=== PATIENT | male | born 1960 | race Caucasian/White ===

== ENCOUNTER 2022-12-15 06:53 | Day surgery (SDC) | payer BC ==
[2022-12-11 14:05] LABS: ALBUMIN 3.9 G/DL (3.4-5.0); ALBUMIN/GLOBULIN RATIO 1.1 (1.1-1.5); ALKALINE PHOSPHATASE 25 IU/L (46-116); BLOOD UREA NITROGEN 17 MG/DL (7-18); BUN/CREATININE RATIO 16.5 (10.0-20.0); CALCIUM 9.2 MG/DL (8.5-10.1); CHLORIDE 106 MMOL/L (99-107); CREATININE 1.03 MG/DL (0.60-1.10); PRE OP ALT 32 U/L (30-65); PRE OP ANION GAP 9 (8-16); PRE OP AST 30 U/L (10-37); PRE OP BILIRUB, TOTAL 0.4 MG/DL (0.0-1.0); PRE OP GLUCOSE 87 MG/DL (70-104); PRE OP POTASSIUM 4.1 MMOL/L (3.4-5.1); PRE OP SODIUM 141 MMOL/L (135-145); TOTAL CARBON DIOXIDE 25.6 MMOL/L (24-32); TOTAL PROTEIN 7.6 G/DL (6.4-8.2); eGFR 73 ML/MIN
[2022-12-11 15:09] LABS: BASOPHILS # (AUTO) 0.1 X10'3 (0-0.2); BASOPHILS % (AUTO) 0.7 % (0-1); EOSINOPHILS # (AUTO) 0.2 X10'3 (0-0.9); EOSINOPHILS % (AUTO) 1.4 % (0-6); LYMPHOCYTES # (AUTO) 2.6 X10'3 (1.1-4.8); LYMPHOCYTES % (AUTO) 23.9 % (21-51); MEAN CORPUSCULAR HEMOGLOBIN 32.7 PG (27.0-31.0); MEAN CORPUSCULAR HGB CONC 33.4 g/dL (33.0-36.5); MEAN CORPUSCULAR VOLUME 97.9 FL (78-98); MEAN PLATELET VOLUME 10.7 FL (7.4-10.4); MONOCYTES # (AUTO) 0.8 X10'3 (0-0.9); MONOCYTES % (AUTO) 7.7 % (2-12); NEUTROPHILS # (AUTO) 7.3 X10'3 (1.8-7.7); NEUTROPHILS % (AUTO) 66.3 % (42-75); PRE OP HEMATOCRIT 45.1 % (42.0-52.0); PRE OP PLATELET COUNT 208 X10'3 (140-440); RED CELL DISTRIBUTION WIDTH 12.8 % (11.5-14.5)
[~2022-12-15] VITALS: Ht 177.8 cm; Wt 120.2 kg
[2022-12-15] VITALS (20 sets, daily range): BP systolic 103–155; BP diastolic 58–91
[~2022-12-15 06:53] MED LIST: ATEN50TA8 PO; ATOR20TA66 PO; DOCUMENT DATE & TIME OF BETA-BLOCKER PO ONE; LISI20TA28 PO; TRAM50TA2 PO; TRIA1CAP88 PO; acetaminophen 325mg tablet PO ONE; ceFAZolin inj. 3,000 MG in normal saline 100ml IV soln 100 ML IV ONE; celeCOXIB 100mg capsule PO ONE; famotidine 20mg tablet PO ONE; gabapentin 300mg capsule PO ONE; metoclopramide 5 mg/ml inj IV ONE; oxyCODONE SR 10mg (sust. release) tab -2 tabs (20mg) PO ONE; tranexamic acid inj. 1,000 MG in normal saline IV soln 100ML IV ONE; vancomycin 1,500 MG in NS 300ml IV soln IV ONE
[2022-12-15] MEDS ORDERED: HYDROcodone/acetaminophen 10/325mg tab PO PRN (07:15)
[2022-12-15] MEDS ORDERED: potassium cl 20mEq in 1/2 NS 1,000 ML IV SCH (07:15)
[2022-12-15] MEDS ORDERED: HYDROmorphone inj. 0.5 MG/0.5 ML DISP.SYRIN IV PRN (07:15)
[2022-12-15] MEDS ORDERED: acetaminophen 325mg tablet PO PRN (07:15)
[2022-12-15] MEDS ORDERED: bisacodyl 10mg suppository rectal RC PRN (07:15)
[2022-12-15] MEDS ORDERED: ondansetron/PF 4mg/2ml inj IV PRN ×2 (07:15→12:20)
[2022-12-15] MEDS ORDERED: naloxone 0.4 mg/ml inj IV PRN (07:15)
[2022-12-15] MEDS ORDERED: magnesium hydroxide 30ml (MOM) UD suspension PO PRN (07:15)
[2022-12-15] MEDS ORDERED: diphenhydrAMINE 25mg capsule PO PRN ×2 (07:15)
--- NOTE | 2022-12-15 07:50 | NUR ---
STRONG PALPABLE PULSE TO TOP OF RIGHT FOOT MARKED W/ SKIN MARKER. PT STATES THEY Bathed per total joint protocol. pt also read booklet and states understanding regarding their procedure.
[2022-12-15] MEDS ORDERED: ceFAZolin/D5W- 1GM premix 50 ML IV SCH (08:00)
[2022-12-15] MEDS: ringers solution, lacted 1,000 ML IV SCH ×3 (08:05→17:49)
[2022-12-15] MEDS ORDERED: ROPIVAcaine 0.5% (5mg/ml) 30ml vial ONE (08:32)
[2022-12-15] MEDS ORDERED: epiNEPHrine 1 mg/ml inj ONE (08:32)
[2022-12-15] MEDS ORDERED: cloNIDine hcl/PF 100mcg/ml inj ONE (08:32)
[2022-12-15] MEDS ORDERED: vancomycin 1,000mg inj ONE (08:32)
[2022-12-15] MEDS ORDERED: MIDAZolam 1mg/ml 10ml vial ONE (11:07)
[2022-12-15] MEDS ORDERED: fentaNYL/PF 50MCG/1 ML 2ML syringe ONE (11:08)
[2022-12-15] MEDS ORDERED: hydrALAZINE 20mg/ml inj. IV PRN (12:20)
[2022-12-15] MEDS ORDERED: ROPIVAcaine 0.2%/PF PUMP/bolus 545 ML ADDCANAL SCH (12:20)
[2022-12-15] MEDS ORDERED: fentaNYL/PF 50MCG/1 ML 2ML syringe IV PRN ×2 (12:20)
[2022-12-15] MEDS ORDERED: morphine 4 MG/ML inj SYRINge IV PRN (12:20)
[2022-12-15] MEDS ORDERED: labetalol 20mg/4ml (5mg/ml) syringe IV PRN (12:20)
[2022-12-15] MEDS ORDERED: morphine 2 MG/ML inj. syringe IV PRN (12:20)
[2022-12-15] MEDS ORDERED: ROPIVAcaine 0.2% (10 MG/5 ML) BOLUS INJECTION ADDCANAL PRN (12:20)
[2022-12-15] MEDS ORDERED: ringers solution, lacted 1,000 ML IV SCH (12:20)
[2022-12-15] MEDS ORDERED: dexamethasone sod phosphate 4mg/ml inj. ONE (12:57)
--- NOTE | 2022-12-15 13:40 | NUR ---
Received from OR via ORTHO BED, accompanied by Anesthesiologist DR OLSON and report given by Anesthesiolgist. PT PLACED ON O2 AND MONITOR, S/P RIGHT TKA, RIGHT KNEE JESUS DRESSING CDI COVERED BY KNEE WRAP WITH ICE PACK IN PLACE, GOOD PEDAL PULSES BILAT, 20G PIV IN RIGHT HAND, DENIES ANY PAIN OR NAUSEA AT THIS TIME. WILL CONT TO ASSESS.
[2022-12-15] MEDS ORDERED: tranexamic acid inj. 1,200 MG in normal saline 100ml IV soln 88 ML IV ONE (14:30)
--- NOTE | 2022-12-15 15:15 | NUR ---
Report called to receiving nurse. Transferred via ORTHO BED TO ROOM 4024B. Special Issues communicated to receiving nurse.
[2022-12-15] MEDS: HYDROcodone/acetaminophen 10/325mg tab PO PRN ×2 (17:10→21:10)
[2022-12-15] MEDS: ceFAZolin inj. 3,000 MG in dextrose 5%-water 100 ML IV SCH (17:36)
--- NOTE | 2022-12-15 18:00 | NUR ---
I have reviewed and agree with interventions, assessments, and documentation by Frandy Wilson LVN.
--- NOTE | 2022-12-15 18:29 | NUR ---
Problems reprioritized. Patient report given, questions answered & plan of care reviewed with GOGO Walls.
[2022-12-15] MEDS ORDERED: vancomycin inj 1,750 MG in normal saline 500ml IV soln 350 ML IV ONE (20:00)
[2022-12-15] MEDS: gabapentin 300mg capsule PO SCH (20:14)
[2022-12-15] MEDS: ascorbic acid 500mg tablet PO SCH (20:14)
[2022-12-15] MEDS ORDERED: sennosides 8.6mg tablet PO SCH (21:00)
[2022-12-15] MEDS: HYDROmorphone 1 mg/ml syringe IV PRN (23:01)
[2022-12-16] MEDS: ceFAZolin inj. 3,000 MG in dextrose 5%-water 100 ML IV SCH ×2 (00:06→08:27)
[2022-12-16 02:00] VITALS: BP 137/78
[2022-12-16] MEDS: HYDROcodone/acetaminophen 10/325mg tab PO PRN ×3 (02:19→12:04)
[2022-12-16 06:00] VITALS: BP 134/92
--- NOTE | 2022-12-16 06:20 | NUR ---
Problems reprioritized. Patient report given, questions answered & plan of care reviewed with ALBA OCAMPO.
[2022-12-16 06:24] LABS: ANION GAP 7 (8-16); CHLORIDE 105 MMOL/L (99-107); POTASSIUM 3.8 MMOL/L (3.5-5.1); SODIUM 140 MMOL/L (135-145); TOTAL CARBON DIOXIDE 27.7 MMOL/L (24-32)
--- NOTE | 2022-12-16 06:25 | NUR ---
Patient in room ORTHO 4024. I have received report from Kavita BOWENS and had the opportunity to ask questions and assume patient care.
[2022-12-16 06:26] LABS: BASOPHILS % (AUTO) 0.2 % (0-1); EOSINOPHILS % (AUTO) 0.2 % (0-6); HEMATOCRIT 37.6 % (42.0-52.0); LYMPHOCYTES # (AUTO) 1.5 X10'3 (1.1-4.8); LYMPHOCYTES % (AUTO) 10.3 % (21-51); MEAN CORPUSCULAR HEMOGLOBIN 33.6 PG (27.0-31.0); MEAN CORPUSCULAR HGB CONC 34.7 g/dL (33.0-36.5); MEAN CORPUSCULAR VOLUME 96.9 FL (78-98); MEAN PLATELET VOLUME 10.3 FL (7.4-10.4); MONOCYTES # (AUTO) 1.3 X10'3 (0-0.9); MONOCYTES % (AUTO) 9.1 % (2-12); NEUTROPHILS # (AUTO) 11.4 X10'3 (1.8-7.7); NEUTROPHILS % (AUTO) 80.2 % (42-75); PLATELET COUNT 164 X10'3 (140-440); RED BLOOD COUNT 3.88 X10'6 (4.70-6.10); WHITE BLOOD COUNT 14.2 X10'3 (4.5-11.0)
[2022-12-16] MEDS ORDERED: atenolol 50mg tablet PO SCH (08:00)
[2022-12-16] MEDS ORDERED: atorvastatin 20mg tablet PO SCH (08:00)
[2022-12-16] MEDS ORDERED: multivitamins, therapeutics tablet PO SCH (08:00)
[2022-12-16] MEDS ORDERED: triamterene/HCTZ 37.5/25mg tablet PO SCH (08:00)
[2022-12-16] MEDS ORDERED: lisinopril 20mg tablet PO SCH (08:00)
[2022-12-16] MEDS: HYDROmorphone 1 mg/ml syringe IV PRN (08:29)
[2022-12-16] MEDS ORDERED: aspirin 325mg tablet PO SCH (08:30)
[2022-12-16] MEDS: ascorbic acid 500mg tablet PO SCH (09:00)
[2022-12-16] MEDS: gabapentin 300mg capsule PO SCH ×2 (09:00→12:04)
[2022-12-16 10:00] VITALS: BP 129/71
--- NOTE | 2022-12-16 10:16 | NUR ---
Joint surgery consult: Pt s/p right total knee arthroplasty surgery this admit per EMR. Pt seen by ELIZABETH odom and ELIZABETH Irene for written/ verbal high protein diet education with RD contact information provided. ELIZABETH encouraged pt to contact dietitian's office for further nutrition questions/concerns. Addendum: 12/16/22 at [address] Amended: Links added. Addendum: 12/16/22 at [address] ELIZABETH has reviewed and approves of above note.
--- NOTE | 2022-12-16 11:30 | NUR ---
Patient discharged home today. Patient discharge instructions were explained to patient and spouse. All questions were answered. Patient spouse helped him to get dressed and all belongings were gathered. IV was removed by RN. Patient was wheeled down stairs and into private vehicle.
--- NOTE | 2022-12-16 12:00 | NUR ---
I have reviewed and agree with interventions, assessments, and documentation by Lindy Anguiano LVN.
--- NOTE | 2022-12-16 12:00 | NUR ---
I have reviewed and agree with interventions, assessments,and documentation by Lindy Anguiano LVN.
[2022-12-16] MEDS ORDERED: celeCOXIB 100mg capsule PO SCH (20:00)
== END 2022-12-16 12:19 | disposition home or self-care (01) ==
LOC: PAS 06:53 → ORTHO 4S 15:20 → PAS 12-16 12:19
PROVIDERS: ATTEND Orthopaedic Surgery
DX: M17.11 Unilateral primary osteoarthritis, right knee (principal); M21.161 Varus deformity, not elsewhere classified, right knee; I10 Essential (primary) hypertension; E78.5 Hyperlipidemia, unspecified; E66.01 Morbid (severe) obesity due to excess calories; Z68.39 Body mass index [BMI] 39.0-39.9, adult; G89.18 Other acute postprocedural pain; F11.90 Opioid use, unspecified, uncomplicated; Z96.642 Presence of left artificial hip joint; Z98.890 Other specified postprocedural states; Z87.891 Personal history of nicotine dependence; Z72.89 Other problems related to lifestyle; Z85.828 Personal history of other malignant neoplasm of skin; Z79.899 Other long term (current) drug therapy
CPT/HCPCS: 27447; 36415; 64448; 71046; 73560; 80051; 80053; 82948; 85025; 86885; 86900; 86901; 87081; 93005; 97110; 97116; 97161; C1713; C1776; J0171; J0690; J0735; J1100; J1170; J2250; J2765; J2795; J3010; J3370; J3480; J3490; J7030; J7040; J7060; J7120; Z7506; Z7508; A4215; A4615; A7000; G0378